=== PATIENT | male | born 1960 | race Caucasian/White ===

== ENCOUNTER 2019-11-26 06:45 | Outpatient (CLI) | payer BC, SELFPAY ==
[2019-11-26 17:05] LABS: SARS-CoV-2 RNA PCR Negative
== END 2019-11-26 06:46 | disposition home or self-care (01) ==
LOC: ANHCOVIDDT 06:46
PROVIDERS: PCP Family Medicine; Visit Provider Internal Medicine Gastroenterology
DX: Z20.828 Contact with and (suspected) exposure to other viral communicable diseases (principal)
CPT/HCPCS: 87635; C9803; U0003

== ENCOUNTER 2019-11-29 01:49 | Day surgery (SDC) | payer BC, SELFPAY ==
[2019-11-23 14:52] VITALS: BMI 29.2
[2019-11-29 10:09] VITALS: BP 113/81; PULSE 57; RESP 16; TEMP 36.4; O2SAT 96
[2019-11-29] MEDS: LACTATED RINGERS 1,000 ML 150 ML IV CONT (10:10)
--- NOTE | 2019-11-29 10:18 | WPDANESEPPF ---
Anes - Initial Pre Proc Eval Procedure: Operation Date: 11/29/19 11:30 Proposed Procedures p Screening Colonoscopy - Donnie Greer DO Date/Time: 11/29/19 10:18 Surgeon: Donnie Greer DO Pre Op Diagnosis: hx of adenomateous colon polyps Patient Data Age: 59 Gender: M Height: 6 ft Weight: 95.4 kg Last Vital Signs Temp 36.4 C L 11/29/19 10:09 Pulse 57 L 11/29/19 10:09 Resp 16 11/29/19 10:09 BP 113/81 11/29/19 10:09 Pulse Ox 96 11/29/19 10:09 Allergies Allergy/AdvReac Type Severity Reaction Status Date / Time amoxicillin Allergy Unknown Swelling Verified 11/29/19 10:07 of Lip/Tongue/Throat ampicillin Allergy Unknown Swelling Verified 11/29/19 10:07 of Lip/Tongue/Throat azithromycin Allergy Unknown Swelling Verified 11/29/19 10:07 of Lip/Tongue/Throat poison elli extract Allergy Unknown Swelling Verified 11/29/19 10:07 Home Medications Medication Instructions Recorded Confirmed Type atorvastatin 40 mg PO HS 07/12/19 11/23/19 History rivaroxaban 20 mg tablet 20 mg PO QPM #90 tablet 07/15/19 11/29/19 Rx icosapent ethyl 1 gram capsule 2 gm PO BID #360 cap 09/20/19 11/23/19 Rx Adult One Daily Multivitamin 1 tab-cap BYMOUTH DAILY 11/23/19 11/23/19 History Vit D 3 1 cap BYMOUTH DAILY 11/23/19 11/23/19 History Patient hx anesthesia problems: none Family hx anesthesia problems: none PMFSH Past Medical History Medical History Bulging discs Dyslipidemia History of colon polyps Irritable bowel syndrome Surgical History Surgical History History of skin graft Left forearm donor site to left fingertip. Status post left hip replacement September 12, 2014. Status post tonsillectomy Family History Family History Sibling Diabetes mellitus Father Family history of elevated blood lipids Mother Family history of cardiovascular disease Family history of elevated blood lipids Family history of arthritis Grandparent Acute myocardial infarction Other Lupus (systemic lupus erythematosus) Social History Social History Social History: The patient lives in [place] with his . He is a patient of Dr. Shant Mitchell. He designates his , Mikayla, as his surrogate decision maker and he wishes to be a full code. He has 2 grown children. He smoked 2 packs of cigarettes per day for 30 years and quit in 2012. He will, however, smoke went out fishing or hunting. Occasionally he will smoke a cigar as well. No alcohol or drug abuse. Smoking packs per day: 1 Smoking cigarettes per day: 20.0 Years smoked: 30 Smoking pack-years: 30.00 Smoking status: Former smoker Tobacco type: cigarettes and cigars Additional smoking assessment comments: 1 cigar per day for a few years - quit 07/12/19 Alcohol intake: current Substance use type: does not use Gender identity (if verbalized by the patient): Male Spiritual care concerns: No Agree to blood products: Yes Anes - Eval Final PreProcedure Day of Procedure 11/29/19 10:18 Patient weight: overweight Heart: regular rate and rhythm Lungs: decreased breath sounds Airway: Mallampati scale class II Neurological: alert and oriented Last oral intake: >/= 8 hours ASA classification: III Emergent: no Anesthetic plan: proceed Anesthesia type and monitoring: general GIVS and standard monitoring Informed Consent: The patient's anesthetic plan and its attendant risks and benefits were discussed with the patient/family/POA. Questions were solicited and answers provided to the satisfaction of the patient/family/POA.
--- NOTE | 2019-11-29 10:20 | PM.IMHP ---
H&P: HPI History of Present Illness Chief complaint: hx of adenomateous colon polyps Narrative: Reason for visit colonoscopy. This very pleasant gentleman was seen in consultation at the request of the patient's primary care physician. Impression: Screening and surveillance colonoscopy. Patient's history adenomatous colon polyps. Hyperlipidemia. Pulmonary embolism. Recommendation: Colonoscopy. History: Very pleasant gentleman is a history of adenomatous colon polyps. GE review systems negative. He is here for screening and surveillance colonoscopy. General: very pleasant patient in no acute distress. HEENT: Head was normocephalic sclerae is clear mouth without masses neck was supple. Heart: Rate rhythm regular without S3 or S4. Lungs: CTA. Abdomen: Soft with no guarding or rigidity. Bowel sounds were active. Neurologic: Cranial nerves 2 through 12 intact. No focal defects. No clonus. Musculoskeletal system: Revealed no joint tenderness or swelling no muscle atrophy. Extremities: Reveal no significant edema. Skin: Warm and dry with normal turgor. Mental status: intact. Patient is alert and oriented. Review of Systems Review of Systems: All systems reviewed & are unremarkable except as noted in HPI and below PMFSH Past Medical History Medical History Bulging discs Dyslipidemia History of colon polyps Irritable bowel syndrome Surgical History Surgical History History of skin graft Left forearm donor site to left fingertip. Status post left hip replacement September 12, 2014. Status post tonsillectomy Family History Family History Sibling Diabetes mellitus Father Family history of elevated blood lipids Mother Family history of cardiovascular disease Family history of elevated blood lipids Family history of arthritis Grandparent Acute myocardial infarction Other Lupus (systemic lupus erythematosus) Social History Social History Social History: The patient lives in [place] with his . He is a patient of Dr. Shant Mitchell. He designates his , Mikayla, as his surrogate decision maker and he wishes to be a full code. He has 2 grown children. He smoked 2 packs of cigarettes per day for 30 years and quit in 2012. He will, however, smoke went out fishing or hunting. Occasionally he will smoke a cigar as well. No alcohol or drug abuse. Smoking packs per day: 1 Smoking cigarettes per day: 20.0 Years smoked: 30 Smoking pack-years: 30.00 Smoking status: Former smoker Tobacco type: cigarettes and cigars Additional smoking assessment comments: 1 cigar per day for a few years - quit 07/12/19 Alcohol intake: current Substance use type: does not use Gender identity (if verbalized by the patient): Male Spiritual care concerns: No Agree to blood products: Yes Meds Home Medications and Allergies Home Medications Medication Instructions Recorded Confirmed Type atorvastatin 40 mg PO HS 07/12/19 11/23/19 History rivaroxaban 20 mg tablet 20 mg PO QPM #90 tablet 07/15/19 11/29/19 Rx icosapent ethyl 1 gram capsule 2 gm PO BID #360 cap 09/20/19 11/23/19 Rx Adult One Daily Multivitamin 1 tab-cap BYMOUTH DAILY 11/23/19 11/23/19 History Vit D 3 1 cap BYMOUTH DAILY 11/23/19 11/23/19 History Allergies Allergy/AdvReac Type Severity Reaction Status Date / Time amoxicillin Allergy Unknown Swelling Verified 11/29/19 10:07 of Lip/Tongue/Throat ampicillin Allergy Unknown Swelling Verified 11/29/19 10:07 of Lip/Tongue/Throat azithromycin Allergy Unknown Swelling Verified 11/29/19 10:07 of Lip/Tongue/Throat poison elli extract Allergy Unknown Swelling Verified 11/29/19 10:07 Vital Signs Vital Signs - 24 hr
[2019-11-29 10:52] VITALS: BP 106/70; PULSE 75; RESP 22; O2SAT 100
[2019-11-29 11:02] VITALS: BP 104/70; PULSE 60; RESP 14; O2SAT 98
[2019-11-29 11:12] VITALS: BP 106/77; PULSE 71; RESP 16; O2SAT 100
== END 2019-11-29 11:29 | disposition home or self-care (01) ==
PROVIDERS: PCP Family Medicine; Visit Provider Internal Medicine Gastroenterology
PROC: 0DJD8ZZ Inspection of Lower Intestinal Tract, Via Natural or Artificial Opening Endoscopic (ICD-10-PCS; CPT 45378; principal; 2019-11-29 11:30)
DX: Z12.11 Encounter for screening for malignant neoplasm of colon (principal); E78.5 Hyperlipidemia, unspecified; D12.2 Benign neoplasm of ascending colon; D12.4 Benign neoplasm of descending colon; D12.8 Benign neoplasm of rectum; K64.8 Other hemorrhoids
CPT/HCPCS: 45380; 45385; 88305; J2001; J2704; J7120

== ENCOUNTER 2021-06-05 15:06 | Emergency (ER) | payer BC, SELFPAY ==
--- NOTE | ~2021-06-05 | XR_ITS ---
EXAMINATION: XR foot RT min 3V DATE: 06/05/2021 15:29 INDICATION: Right foot pain. TECHNIQUE: 4 views of right foot were obtained. COMPARISON: None. FINDINGS: There is an oblique fracture of diaphysis of fifth metatarsal. The distal fracture fragment demonstrates 2 mm dorsomedial displacement. There is mild osteoarthritis of talonavicular joint. The re are enthesophytes at the posterior and plantar aspects of calcaneal tuberosity. IMPRESSION: 1. Oblique fracture of diaphysis of fifth metatarsal. Reviewed, dictated and finalized at location [facility]
[2021-06-05 15:15] VITALS: BP 142/86; PULSE 79; RESP 16; TEMP 36.8; O2SAT 99
--- NOTE | 2021-06-05 15:25 | ED.EXTPRO ---
HPI - Extremity Problem General Chief complaint: Extremity Problem,Nontraumatic Stated complaint: Rt Foot Pain Time Seen by Provider: 06/05/21 15:28 Source: patient and RN notes reviewed Mode of arrival: ambulatory Limitations: no limitations History of Present Illness HPI Narrative: Ricardo is a 61-year-old male patient who ambulated into the [facility]. Patient states he was laying on the couch and stood up and felt a pop in his right foot on the right lateral side. Patient states he had instant swelling and pain. Patient states he is been taking Tylenol for the pain. MD Complaint: extremity pain Related Data Home Medications Medication Instructions Recorded Confirmed Adult One Daily Multivitamin 1 tab-cap BYMOUTH DAILY 11/23/19 04/09/21 Vit D 3 1 cap BYMOUTH DAILY 11/23/19 04/09/21 coenzyme Q10 60 mg tablet 60 mg PO DAILY 09/25/20 04/09/21 vitamin B complex 1 cap PO DAILY 09/25/20 04/09/21 Allergies Allergy/AdvReac Type Severity Reaction Status Date / Time amoxicillin Allergy Unknown Swelling Verified 04/09/21 11:05 of Lip/Tongue/Throat ampicillin Allergy Unknown Swelling Verified 04/09/21 11:05 of Lip/Tongue/Throat azithromycin Allergy Unknown Swelling Verified 04/09/21 11:05 of Lip/Tongue/Throat poison elli extract Allergy Unknown Swelling Verified 04/09/21 11:05 Review of Systems Review of Systems: CONSTITUTIONAL: Denies body aches, fever, chills, or sweats. EYES: Denies visual changes, redness, or discharge. ENT: Denies rhinorrhea, congestion, sore throat, or otalgia. CARDIOVASCULAR: Denies chest pain, palpitations, or edema. RESPIRATORY: Denies cough or dyspnea. GASTROINTESTINAL: Denies abdominal pain, nausea, vomiting, or diarrhea. GENITOURINARY: Denies dysuria or hematuria. SKIN: Denies rash, itching, or wounds. MUSCULOSKELETAL: Denies back pain, joint pain, or myalgia.+ RIGHT foot and toe pain NEUROLOGIC: Denies headache, numbness, tingling, or weakness. PSYCH: Denies depression or anxiety. All systems reviewed & are unremarkable except as noted in HPI and below PMFSH Past Medical History Medical History Bulging discs Dyslipidemia History of colon polyps Irritable bowel syndrome Overweight Surgical History Surgical History History of skin graft Left forearm donor site to left fingertip. Status post left hip replacement September 12, 2014. Status post tonsillectomy Family History Family History Sibling Diabetes mellitus Father Family history of elevated blood lipids Mother Family history of cardiovascular disease Family history of elevated blood lipids Family history of arthritis Grandparent Acute myocardial infarction Other Lupus (systemic lupus erythematosus) Social History Social History Social History: The patient lives in [place] with his . He is a patient of Dr. Shant Mitchell. He designates his , Mikayla, as his surrogate decision maker and he wishes to be a full code. He has 2 grown children. He smoked 2 packs of cigarettes per day for 30 years and quit in 2012. He will, however, smoke went out fishing or hunting. Occasionally he will smoke a cigar as well. No alcohol or drug abuse. Smoking packs per day: 1 Smoking cigarettes per day: 20.0 Years smoked: 30 Smoking pack-years: 30.00 Smoking status: Current some day smoker Tobacco type: cigarettes and cigars Additional smoking assessment comments: 1 cigar per day for a few years - quit 07/12/19 Alcohol intake: current Substance use type: does not use Gender identity (if verbalized by the patient): Male Spiritual care concerns: No Agree to blood products: Yes Comments At time of signature, I have reviewed and agree with nursing past
== END 2021-06-05 15:56 | disposition home or self-care (01) ==
PROVIDERS: Emergency Provider Nurse Practitioner Family; PCP Family Medicine
DX: S92.354A Nondisplaced fracture of fifth metatarsal bone, right foot, initial encounter for closed fracture (principal); X58.XXXA Exposure to other specified factors, initial encounter; E78.5 Hyperlipidemia, unspecified; Z96.642 Presence of left artificial hip joint; F17.210 Nicotine dependence, cigarettes, uncomplicated
CPT/HCPCS: 73630; 99214; G0463

== ENCOUNTER 2022-01-17 12:54 | Outpatient (RCR) | payer OTHER, SELFPAY ==
[2022-01-17 13:02] VITALS: BP 112/84; PULSE 76; RESP 20; TEMP 36.5; O2SAT 98
[2022-01-17] MEDS: ACETAMINOPHEN 325 MG TABLET 650 MG PO (13:04)
[2022-01-17] MEDS: FAMOTIDINE 20 MG TABLET PO (13:04)
[2022-01-17] MEDS: diphenhydrAMINE HCl CAP 25 MG CAPSULE PO (13:04)
[2022-01-17] MEDS: BEBTELOVIMAB 175 MG/2 ML VIAL IV PUSH (13:30)
[2022-01-17 14:14] VITALS: BP 104/77; PULSE 70; RESP 18; O2SAT 97
== END 2022-01-17 16:00 ==
LOC: AMCINF 12:54
PROVIDERS: PCP Family Medicine; Referring Provider Family Medicine; Visit Provider Internal Medicine Hematology & Oncology
DX: U07.1 COVID-19 (principal); I25.10 Atherosclerotic heart disease of native coronary artery without angina pectoris
CPT/HCPCS: A9270; M0222; Q0222

== ENCOUNTER 2023-04-15 00:42 | Day surgery (SDC) | payer OTHER, SELFPAY ==
[2023-04-04 10:50] VITALS: BMI 29.9
[2023-04-15 09:10] VITALS: BP 135/88; PULSE 71; RESP 18; TEMP 36; O2SAT 100
[2023-04-15] MEDS: LACTATED RINGERS 1,000 ML 150 ML IV CONT (09:12)
--- NOTE | 2023-04-15 09:44 | PM.HPGS ---
History of Present Illness History of Present Illness Consent: Risks, benefits, and alternatives have been discussed and questions answered. Patient agrees to proceed with procedure. Chief complaint: Pesonal hx colon polyps Narrative: Ricardo Ignacio is a 63 year old male Presents for screening colonoscopy. Patient's current weight appetite and bowel movements are normal. Patient denies abdominal pain. He has had no bleeding. Family history noncontributory. Patient does have a prior history of colon polyps. Most recent colonoscopy 2019. Patient presents today for screening colonoscopy. Review of Systems Review of Systems: Review of systems noncontributory. [facility] Past Medical History Medical History (Updated 01/24/23 @ 16:10 by Shant Mitchell MD) Bulging discs Dyslipidemia History of colon polyps Irritable bowel syndrome Metatarsal fracture Overweight Surgical History Surgical History History of skin graft Left forearm donor site to left fingertip. Status post left hip replacement September 12, 2014. Status post tonsillectomy Family History Family History Sibling Diabetes mellitus Father Family history of elevated blood lipids Mother Family history of cardiovascular disease Family history of elevated blood lipids Family history of arthritis Grandparent Acute myocardial infarction Other Lupus (systemic lupus erythematosus) Social History Social History Social History: The patient lives in [place] with his . He is a patient of Dr. Shant Mitchell. He designates his , Mikayla, as his surrogate decision maker and he wishes to be a full code. He has 2 grown children. He smoked 2 packs of cigarettes per day for 30 years and quit in 2012. He will, however, smoke went out fishing or hunting. Occasionally he will smoke a cigar as well. No alcohol or drug abuse. Smoking packs per day: 0.5 Smoking cigarettes per day: 10.0 Years smoked: 45 Smoking pack-years: 22.50 Smoking status: Current every day smoker Tobacco type: cigarettes Additional smoking assessment comments: 1 cigar per day for a few years - quit 07/12/19 Alcohol intake: current Substance use: current Substance use type: marijuana Other substance usage details: 2-3XW Lack of Transportation: No Lack of Food: Never True Current Housing: I Have Housing Concerned About Future Housing: No Difficulty Paying Gas/Electric Bills: No Difficulty Paying for Meds: No Currently Unemployed: No Education: High School Diploma/GED Difficulty w/ Childcare or Family Care: No Living arrangements: with family Gender identity (if verbalized by the patient): Male Spiritual care concerns: No Agree to blood products: Yes Meds Home Medications and Allergies Home Medications Medication Instructions Recorded Confirmed Type Adult One Daily Multivitamin 1 tab-cap BYMOUTH DAILY 11/23/19 04/15/23 History Vit D 3 1 cap BYMOUTH DAILY 11/23/19 04/15/23 History atorvastatin 40 mg tablet See Rx Instructions .Route 04/01/22 04/15/23 Rx .COMPLEX #90 tabs sildenafil 100 mg tablet 100 mg PO DAILY PRN sexual 09/23/22 04/15/23 Rx activity #30 tabs fenofibrate 160 mg tablet 160 mg PO DAILY #90 tabs 02/18/23 04/15/23 Rx rivaroxaban 20 mg tablet (Xarelto) 20 mg PO QPM #90 tabs 02/18/23 04/15/23 Rx ascorbic acid (vitamin C) 1,000 mg 1 g PO DAILY 04/04/23 04/15/23 History tablet coQ10 (ubiquinol) 200 mg capsule 200 mg PO DAILY 04/04/23 04/15/23 History icosapent ethyl 1 gram capsule 2 g PO BID 04/04/23 04/15/23 History (Vascepa) vitamin B complex 1 cap PO DAILY 04/04/23 04/15/23 History Allergies Allergy/AdvReac Type Severity Reaction Status Date / Time amoxicillin Allergy Severe Swelling Verified 04/15/23 09:09 erica Sampson
--- NOTE | 2023-04-15 10:08 | WPDANESEPPF ---
Anes - Initial Pre Proc Eval Procedure: Operation Date: 04/15/23 10:30 Proposed Procedures p Colonoscopy - Donnie Alexander MD Date/Time: 04/15/23 10:08 Surgeon: Donnie Alexander MD Pre Op Diagnosis: Pesonal hx colon polyps Patient Data Age: 63 Gender: M Height: 1.83 m Weight: 101.8 kg Last Vital Signs Temp 96.8 F L 04/15/23 09:10 Pulse 71 04/15/23 09:10 Resp 18 04/15/23 09:10 BP 135/88 04/15/23 09:10 Pulse Ox 100 04/15/23 09:10 O2 Del Method Room Air 04/15/23 09:10 Allergies Allergy/AdvReac Type Severity Reaction Status Date / Time amoxicillin Allergy Severe Swelling Verified 04/15/23 09:09 of Lip/Tongue/Throat ampicillin Allergy Severe Swelling Verified 04/15/23 09:09 of Lip/Tongue/Throat azithromycin Allergy Severe Swelling Verified 04/15/23 09:09 of Lip/Tongue/Throat poison elli extract Allergy Severe Swelling Verified 04/15/23 09:09 Home Medications Medication Instructions Recorded Confirmed Type Adult One Daily Multivitamin 1 tab-cap BYMOUTH DAILY 11/23/19 04/15/23 History Vit D 3 1 cap BYMOUTH DAILY 11/23/19 04/15/23 History atorvastatin 40 mg tablet See Rx Instructions .Route 04/01/22 04/15/23 Rx .COMPLEX #90 tabs sildenafil 100 mg tablet 100 mg PO DAILY PRN sexual 09/23/22 04/15/23 Rx activity #30 tabs fenofibrate 160 mg tablet 160 mg PO DAILY #90 tabs 02/18/23 04/15/23 Rx rivaroxaban 20 mg tablet (Xarelto) 20 mg PO QPM #90 tabs 02/18/23 04/15/23 Rx ascorbic acid (vitamin C) 1,000 mg 1 g PO DAILY 04/04/23 04/15/23 History tablet coQ10 (ubiquinol) 200 mg capsule 200 mg PO DAILY 04/04/23 04/15/23 History icosapent ethyl 1 gram capsule 2 g PO BID 04/04/23 04/15/23 History (Vascepa) vitamin B complex 1 cap PO DAILY 04/04/23 04/15/23 History Patient hx anesthesia problems: none Family hx anesthesia problems: none Results Review: All pre-operative results and documents have been reviewed as part of the pre-operative evaluation. [facility] Past Medical History Medical History (Updated 01/24/23 @ 16:10 by Shant Mitchell MD) Bulging discs Dyslipidemia History of colon polyps Irritable bowel syndrome Metatarsal fracture Overweight Surgical History Surgical History History of skin graft Left forearm donor site to left fingertip. Status post left hip replacement September 12, 2014. Status post tonsillectomy Family History Family History Sibling Diabetes mellitus Father Family history of elevated blood lipids Mother Family history of cardiovascular disease Family history of elevated blood lipids Family history of arthritis Grandparent Acute myocardial infarction Other Lupus (systemic lupus erythematosus) Social History Social History Social History: The patient lives in [place] with his . He is a patient of Dr. Shant Mitchell. He designates his , Mikayla, as his surrogate decision maker and he wishes to be a full code. He has 2 grown children. He smoked 2 packs of cigarettes per day for 30 years and quit in 2012. He will, however, smoke went out fishing or hunting. Occasionally he will smoke a cigar as well. No alcohol or drug abuse. Smoking packs per day: 0.5 Smoking cigarettes per day: 10.0 Years smoked: 45 Smoking pack-years: 22.50 Smoking status: Current every day smoker Tobacco type: cigarettes Additional smoking assessment comments: 1 cigar per day for a few years - quit 07/12/19 Alcohol intake: current Substance use: current Substance use type: marijuana Other substance usage details: 2-3XW Lack of Transportation: No Lack of Food: Never True Current Housing: I Have Housing Concerned About Future Housing: No Difficulty Paying Gas/Electric Bills: No Difficulty Paying for Meds: No Currently
--- NOTE | 2023-04-15 10:52 | SUR.OPER ---
2 sigmoid colon polyps removed via hot snare. Only [address] Alexander aware.
[2023-04-15 10:53] VITALS: BP 110/81; PULSE 70; RESP 21; O2SAT 96
[2023-04-15 11:03] VITALS: BP 129/87; PULSE 72; RESP 19; O2SAT 98
[2023-04-15 11:13] VITALS: BP 130/87; PULSE 66; RESP 19; O2SAT 99
== END 2023-04-15 11:18 | disposition home or self-care (01) ==
PROVIDERS: PCP Family Medicine; Visit Provider Internal Medicine Gastroenterology
PROC: 0DJD8ZZ Inspection of Lower Intestinal Tract, Via Natural or Artificial Opening Endoscopic (ICD-10-PCS; CPT 45378; principal; 2023-04-15 10:30)
DX: Z12.11 Encounter for screening for malignant neoplasm of colon (principal); K63.5 Polyp of colon; K64.8 Other hemorrhoids; E78.5 Hyperlipidemia, unspecified; Z79.01 Long term (current) use of anticoagulants; Z87.891 Personal history of nicotine dependence; F12.90 Cannabis use, unspecified, uncomplicated; E66.9 Obesity, unspecified; Z68.30 Body mass index [BMI] 30.0-30.9, adult
CPT/HCPCS: 45385; 88305; J2704; J7120